=== PATIENT | female | born 1935 | race Caucasian/White ===

== ENCOUNTER → 2016-06-25 | Outpatient (CLI) | payer MEDICARE, BC | LOC: RAD 14:07 | PROVIDERS: ATTEND Physician Assistant | DX: M25.512 Pain in left shoulder (principal); M75.102 Unspecified rotator cuff tear or rupture of left shoulder, not specified as traumatic; M25.412 Effusion, left shoulder ==

== ENCOUNTER 2018-02-18 13:38 | Emergency (ER) | payer MEDICARE, BC ==
[2018-02-18 13:52] VITALS: BP 125/83
--- NOTE | 2018-02-18 14:19 | ER Document Report ---
ED General - General Chief Complaint: Medication Refill Stated Complaint: MEDICATION REFILLE Time Seen by Provider: 02/18/18 14:16 Notes: Patient is a 82-year-old female that presents to the emergency department for chief complaint of needs medicine refilled. Patient reports that she is on paroxetine 40 mg, she ran out of her medicine today, she took her last dose last night, she is scheduled to follow-up with her primary care physician, on , this is a new physician, but she would like to have her medication until that appointment. She states she has been having tinnitus, and feeling off balance for a long time, but the paroxetine seems to help with that. She denies having any recent fevers, chills, headache, chest pain, shortness of breath, nausea, vomiting or abdominal pain. No other complaints at this time. Past Medical History: Hypertension, hyperlipidemia, depression Past Surgical History: Denies pertinent and recent surgical history Social History: Denies tobacco, alcohol or illicit drug use. Family History: Reviewed and noncontributory for presenting illness Allergies: Reviewed, see documented allergy list. REVIEW OF SYSTEMS: Other than noted above, the 12 point review of systems was reviewed with the patient and were negative, all pertinent findings are included in the HPI. PHYSICAL EXAMINATION: Vital signs reviewed, nursing noted reviewed. GENERAL: Elderly, well-appearing female, no acute distress HEAD: Atraumatic, normocephalic. EYES: Eyes appear normal, extraocular movements intact, sclera anicteric, conjunctiva are normal. ENT: nares patent, oropharynx clear without exudates. Moist mucous membranes. TMs appear normal bilaterally. NECK: Normal range of motion, supple without lymphadenopathy LUNGS: Breath sounds clear to auscultation bilaterally and equal. No wheezes rales or rhonchi. HEART: Regular rate and rhythm without murmurs ABDOMEN: Soft, nontender, normoactive bowel sounds. No rebound, guarding, or rigidity. No masses appreciated. EXTREMITIES: Nontender, good range of motion, no pitting or edema. NEUROLOGICAL: No focal neurological deficits. Moves all extremities spontaneously Motor and sensory grossly intact on exam. PSYCH: Normal mood, normal affect. SKIN: Warm, Dry, normal turgor, no rashes or lesions noted on exposed skin TRAVEL OUTSIDE OF THE [place] 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 Denies: Hx Seizures Renal/ Medical History: Denies: Hx Peritoneal Dialysis GI Medical History: Denies: Hx Hepatitis, Hx Hiatal Hernia, Hx Ulcer Infectious Medical History: Denies: Hx Hepatitis Past Surgical History: Denies: Hx Mastectomy, Hx Open Heart Surgery, Hx Pacemaker Physical Exam - Vital signs Vitals: Temp Pulse Resp BP Pulse Ox 97.9 F 81 14 125/83 96 02/18/18 13:50 02/18/18 13:50 02/18/18 13:50 02/18/18 13:50 02/18/18 13:50 Course - Re-evaluation Re-evalutation: Patient symptoms of tinnitus and feeling off balance were discussed with her, that she states that this is been going on for several months, in no acute changes. I discussed with her the possibility that she has Mnire's disease, she states that she would discuss this with her primary care physician when she follows up at the end of this month, I provided the patient with enough medication for her peroxide teen, through her appointments that she does not go through withdrawal from this medication, patient was agreeable to plan of care, and discharged home. - Vital Signs Vital signs: Temp Pulse Resp BP Pulse Ox 97.9 F 81 14 125/83 96 02/18/18 13:50 02/18/18 13:50 02/18/18 13:50 02/18/18 13:50 02/18/18 13:50 Discharge - Discharge Clinical Impression: Medication refill Tinnitus Qualifiers: Laterality: bilateral Qualified Code(s): H93.13 - Tinnitus, bilateral Condition: Stable Disposition: HOME, SELF-CARE Instructions: Meniere's Disease ([facility]) Additional Instructions: Please follow-up with your primary care physician on the of this month, take the medications as prescribed, your symptoms seem consistent with a condition called Meniere's disease, which includes feeling off balance, and having ear ringing that is constant. I have provided the name of an ear nose and throat physician, but if you like you could wait until you have your appointment at the end of this month. Prescriptions: Paroxetine HCl 40 mg PO DAILY #30 tablet Referrals: MARGAUX PERKINS PA [Primary Care Provider] - Follow up as needed ITZEL WILSON DO [ASSOCIATE] - Follow up in 3-5 days (ENT )
== END 2018-02-18 14:30 | disposition home or self-care (01) ==
LOC: ER 13:38
DX: Z76.0 Encounter for issue of repeat prescription (principal); F32.9 Major depressive disorder, single episode, unspecified; Z79.899 Other long term (current) drug therapy; H93.13 Tinnitus, bilateral; I10 Essential (primary) hypertension; Z86.79 Personal history of other diseases of the circulatory system
CPT/HCPCS: 99281